=== PATIENT | female | born 1940 | race Two or more races ===

== ENCOUNTER 2019-01-07 11:14 | Emergency (ER) | payer MEDICARE, BC ==
[2019-01-07 11:28] VITALS: BP 168/90
--- NOTE | 2019-01-07 12:51 | ED Physician Documentation ---
PD HPI UPPER EXT INJURY - Stated complaint Stated Complaint: R SHOULDER PX - Chief complaint Chief Complaint: Ext Problem - History obtained from History obtained from: Patient - History of Present Illness Location: Right, Shoulder Timing - duration: Months (3) Timing - details: Still present Worsened by: Moving Similar symptoms before: Diagnosis (arthritis) - Additonal information Additional information: The patient is a 78-year-old right-hand dominant female who complains of pain in her right shoulder. There has been no recent injury, but she states that her current pain started about 3 months ago after installing angelito. She has a history of arthritis and is requesting an injection in her shoulder to help relieve the pain. She denies fever, numbness or weakness, or neck pain. She has history of similar symptoms, and has had injections in the past. She had shoulder x-ray in [place] within the last 2 months, and does not wish to get another x-ray today. She lives part-time on [facility] and part-time in [place]. Review of Systems Constitutional: denies: Fever Nose: denies: Congestion Throat: denies: Sore throat Cardiac: denies: Chest pain / pressure Respiratory: denies: Dyspnea, Cough GI: denies: Abdominal Pain, Nausea, Vomiting : denies: Dysuria Skin: denies: Rash Musculoskeletal: reports: Joint pain (Right shoulder). denies: Neck pain Neurologic: denies: Focal weakness, Numbness, Headache PD PAST MEDICAL HISTORY - Past Medical History Cardiovascular: Hypertension, Angina Respiratory: None Endocrine/Autoimmune: None GI: None : None HEENT: None Psych: None Musculoskeletal: Rheumatoid arthritis Derm: Herpes zoster - Past Surgical History Past Surgical History: Yes General: Colonoscopy, EGD /[employer]: section Derm: Other - Present Medications Home Medications: Ambulatory Orders Medication Instructions Recorded Confirmed Aspirin [Michael Chewable Aspirin] 81 mg ORAL DAILY 05/09/16 01/07/19 Atenolol 25 mg PO DAILY 05/09/16 01/07/19 Potassium Chloride [Micro-K] 10 meq ORAL DAILY 05/14/16 01/07/19 Calcium Carbonate [Calcium] 1 tab PO DAILY 01/07/19 01/07/19 Cholecalciferol (Vitamin D3) 1 tab PO DAILY 01/07/19 01/07/19 [Vitamin D3] Lidocaine Patch 5% [Lidoderm Patch] 1 patch TOP DAILY PRN #10 patch 01/07/19 Omega3,5,6,7,9 No.1/Lavonia Oil 1 tab PO DAILY 01/07/19 01/07/19 [Complete Krypton Softgel] - Allergies Allergies/Adverse Reactions: Allergies Allergy/AdvReac Type Severity Reaction Status Date / Time No Known Drug Allergies Allergy Verified 01/07/19 11:28 - Social History Does the pt smoke?: No Smoking Status: Never smoker Does the pt drink ETOH?: No Does the pt have substance abuse?: No - Immunizations Immunizations are current?: No Immunizations: TDAP >10years/unknown PD ED PE NORMAL - Vitals Vital signs reviewed: Yes (hypertensive) - General General: Alert and oriented X 3, Well developed/nourished - HEENT HEENT: Atraumatic - Neck Neck: No bony TTP - Cardiac Cardiac: RRR - Respiratory Respiratory: No respiratory distress, Clear bilaterally - Back Back: No spinal TTP - Derm Derm: No rash - Extremities Extremities: No deformity, No edema, No calf tenderness / cord, Other (There is tenderness to palpation over the anterior aspect of the right shoulder. There is no warmth or erythema. She is able to elevating her right arm to 90, but range of motion exacerbates her discomfort. Distal neurovascular is intact.) - Neuro Neuro: Alert and oriented X 3, No motor deficit, No sensory deficit Results - Vitals Vitals: Oxygen O2 Source Room air PD MEDICAL DECISION MAKING - ED course Complexity details: considered differential, d/w patient ED course: The patient's presentation is most consistent with rotator cuff injury of the right shoulder. I doubt acute fracture, and there is no clinical evidence to suggest joint infection. The patient declined x-ray examination. A right arm sling was applied. She is being discharged with prescription for Lidoderm patch. I explained to her that I did not perform injections of joints, but advised that she follow-up with orthopedics. I discussed with her symptomatic treatment, outpatient follow-up, as well as potentially worrisome signs or symptoms that should prompt reevaluation in the emergency department. Departure - Departure Disposition: Home, Self Care Clinical Impression: Disorder of right rotator cuff Condition: Stable Instructions: ED Torn Rotator Cuff Follow-Up: [facility] [Provider Group] Prescriptions: Lidocaine Patch 5% [Lidoderm Patch] 1 patch TOP DAILY PRN #10 patch PRN Reason: pain Comments: Wear the arm sling if it provides comfort. Apply lidocaine patch on your shoulder daily as prescribed. You can use Tylenol, up to 650 mg every 4 hours if needed for pain. Follow-up with orthopedics within 1-2 weeks. Call to schedule an appointment. Return to the emergency department if you develop increasing pain, numbness or weakness, or otherwise worsening symptoms. Discharge Date/Time: 01/07/19 13:28
== END 2019-01-07 13:28 | disposition home or self-care (01) ==
LOC: ED 11:14
DX: M75.101 Unspecified rotator cuff tear or rupture of right shoulder, not specified as traumatic (principal); M06.9 Rheumatoid arthritis, unspecified; I10 Essential (primary) hypertension; Z79.82 Long term (current) use of aspirin
CPT/HCPCS: 99283

== ENCOUNTER 2020-03-03 17:42 | Outpatient (CLI) | payer MEDICARE | END 2020-03-03 17:43 | disposition EMS.NT | LOC: EMS 17:42 | PROVIDERS: ATTEND Surgery | DX: R05 Cough (principal); J02.9 Acute pharyngitis, unspecified ==